=== PATIENT | male | born 1960 | race Caucasian/White ===

== ENCOUNTER 2020-11-22 18:58 | Emergency (ER) | payer MEDICARE, MEDICAID, SELFPAY ==
[2020-11-22 19:19] VITALS: BP 195/95; PULSE 78; RESP 18; TEMP 37.1; O2SAT 99; BMI 29.0
--- NOTE | 2020-11-22 19:43 | ECG_ITS ---
Test Reason : HTN Blood Pressure : / mmHG Vent. Rate : 057 BPM Atrial Rate : 057 BPM P-R Int : 146 ms QRS Dur : 096 ms QT Int : 488 ms P-R-T Axes : 055 004 030 degrees QTc Int : 474 ms Sinus bradycardia Cannot rule out Inferior infarct , age undetermined Abnormal ECG No previous ECGs available Referred By: Norma Rothman Electronically Signed By:DAY COREA
--- NOTE | 2020-11-22 19:44 | ED_ITS ---
HPI - General Adult General Chief complaint: General Medical Stated complaint: High blood pressure Time Seen by Provider: 11/22/20 19:43 Source: patient and family Mode of arrival: ambulatory Limitations: no limitations History of Present Illness MD complaint: HTN Onset (ago): week(s) (1) Location: head Radiation: non-radiation Severity: mild Quality: aching Pain Consistency: now resolved Relieving factors: none Exacerbating factors: other (has not been on enalapril 10mg for 1 week forgot medication in [place]) Associated symptoms: denies other symptoms Treatments prior to arrival: none Related Data Previous Rx's Medication Instructions Recorded enalapril maleate 10 mg tablet 10 mg PO DAILY #30 tab 11/22/20 Allergies Allergy/AdvReac Type Severity Reaction Status Date / Time seafood AdvReac Anaphylaxis Verified 11/22/20 19:25 Review of Systems Review of Systems: Constitutional : No Weight loss, No Fever, No Chills, No Fatigue, No Malaise ENT/Mouth : No sore throat, No Rhinorrhea Eyes: No Eye Pain, No Swelling, No Redness Cardiovascular : No Chest Pain, No SOB, No Dyspnea on Exertion, No Orthopnea, No Edema, No Palpitations Respiratory : No Cough, No Sputum, No Wheezing Gastrointestinal : No Nausea, No Vomiting, No Diarrhea, No Constipation, No abdominal Pain, No Hematochezia, No Melena Genitourinary : No Dysuria, No Urinary Frequency, No Hematuria, Musculoskeletal : No joint pain, No Myalgias, No Joint Swelling Skin : No Skin Lesions, No rash Neuro : No Weakness, No Numbness, No Dizziness, pos Headache Psych : No Anxiety/Panic, No Depression Heme/Lymph: No Bruising, No Bleeding,No Lymphadenopathy Endocrine : No Polyuria, No Polydipsia All other systems reviewed and are negative [facility] Past Medical History Attestation statement: The following information was validated with the patient. Medical History (Updated 11/22/20 @ 21:17 by Norma Rothman DO) Depression Diabetes HTN (hypertension) Surgical History History of hernia surgery Social History Social History Patient Tobacco Use Status: Current everyday Tobacco user Use of substances other than those prescribed or required for medical reasons: No Advance Directives: No Advance Directives Information Provided: No Physical Exam Vital Signs: Vital Signs: Last Vital Signs Temp 98.8 F 11/22/20 19:19 Pulse 62 11/22/20 21:15 Resp 15 11/22/20 21:15 BP 187/84 H 11/22/20 21:15 Pulse Ox 98 11/22/20 21:15 Body Mass Index 29.0 Appearance: Alert. Oriented X3. No acute distress. Eyes: Pupils equal, round and reactive to light. ENT: Pharynx normal. Neck: Normal inspection. Neck supple. CVS: Normal heart rate and rhythm. Pulses normal. Respiratory: No respiratory distress. Breath sounds normal. Abdomen: Soft and nontender. Skin: Skin warm and dry. Normal skin color. Normal skin turgor. Extremities: No lower extremity edema. No calf ttp Neuro: Oriented X 3. No motor deficit. No sensory deficit. Course Course Course Narrative: BP improved stable for DC labs likely related to his chronic ETOH use given panyctopenia hx of ETOH abuse and fatty liver I do not suspect that these liver and lab findings are new he will need to follow up as outpatient discussed no ETOH or tylenol Medical Decision Making MDM Narrative Medical decision making narrative: 60 yo male with hx of recovery ETOH, HTN forgot to bring his 10mg enalapril from [place], DM - comes in with elevated BPs at home intermittent headaches - symptom from now, BP is 204 systolic, no signs of tremor or withdrawal is on xanax 2mg at home, will obtain basic labs, if BP corrects will DC home on his medications Lab Data Result diagrams: 11/22/20 20:07 11/22/20 20:07 Labs: Lab Results 11/22/20 11/22/20 Range/Units 20:07 20:07 WBC 3.2 L (4.8-10.8) X10*3/uL RBC 4.13 L (4.60-5.80) X10*6/uL Hgb 13.8 L (14.0-18.0) g/dl Hct 39.6 L (42-52) % MCV 95.9 (80-98) fL MCH 33.4 H (27.0-33.0) pg MCHC 34.8 (31.0-36.0) g/dl RDW 16.0 (11.0-16.0) % Plt Count 70 L (160-400) X10*3/uL MPV 13.1 H (9.4-12.4) fL Immature Gran % (Auto) 0.6 H (0.0-0.4) % Neut % (Auto) 54.6 (45-73) % Lymph % (Auto) 32.4 (20-40) % Haywood % (Auto) 11.5 H (2-11) % Eos % (Auto) 0.3 (0-4) % Baso % (Auto) 0.6 (0-2) % Lymph # (Auto) 1.0 L (1.2-4.9) X10*3/uL Haywood # (Auto) 0.4 (0.1-1.2) X10*3/uL Eos # (Auto) 0.0 (0.0-0.4) X10*3/uL Baso # (Auto) 0.0 (0.0-0.2) X10*3/uL Abs Immat Gran (auto) 0.02 (0.00-0.03) X10*3/uL Absolute Neuts (auto) 1.8 L (2.0-8.3) X10*3/uL Absolute Nucleated RBC 0.000 (0.0-0.012) X10*3/uL Nucleated RBC % (auto) 0.0 (0.0-0.2) /100WBC Sodium 139 (135-145) mmol/L Potassium 4.1 (3.3-5.1) mmol/L Chloride 104 (96-108) mmol/L Carbon Dioxide 24 (22-29) mmol/L Anion Gap 15 (12-20) BUN 17 H (9-16) mg/dL Creatinine 0.80 (0.5-1.4) mg/dL Estim Creat Clear Calc 99.7 Estimated GFR > 60 Random Glucose 142 H (60-115) mg/dL Calcium 9.1 (8.4-10.2) mg/dL Magnesium 1.8 (1.6-2.6) mg/dL Total Bilirubin 4.2 H (0.0-1.0) mg/dL Direct Bilirubin 2.0 H (0.0-0.5) mg/dL AST 189 H (5-37) U/L ALT 153 H (0-40) U/L Alkaline Phosphatase 106 (39-117) U/L Total Protein 7.6 (6.5-8.0) g/dL Albumin 3.5 (3.5-5.0) g/dL ECG Data Attestation: I personally reviewed and interpreted this ECG as follows: Interpretation: Rate: 57 Rhythm: sinus bradycardia Osborne: normal Normal P waves. Normal GREGORY. Normal QRS complex. ST T wave : normal no ZAHIDA qTC: normal prior studies: no acute ischemia The study has been interpreted contemporaneously by me. . Discharge Plan Discharge Clinical Impression: Pancytopenia, Elevated liver function tests HTN (hypertension) Qualifiers: Hypertension type: unspecified Qualified Code(s): I10 - Essential (primary) hypertension Patient Disposition: Home, Self-Care Instructions: Chronic Hypertension (ED) Additional Instructions: return to ED for any worsening symptoms or concerns NO TYLENOL NO ALCOHOL Prescriptions: New enalapril maleate 10 mg tablet 10 mg PO DAILY Qty: 30 RF: 0 Print Language: Yoruba
[2020-11-22 19:58] VITALS: BP 204/92; PULSE 81; RESP 18; O2SAT 97
[2020-11-22 20:11] VITALS: BP 187/94; PULSE 79
[2020-11-22] MEDS: Labetalol HCL 100 MG/20 ML VIAL 10 MG IVPUSH (20:11)
[2020-11-22 20:12] LABS: MANUAL DIFF FLAG NO
[2020-11-22 20:15] LABS: Basophils Percent Auto 0.6 % (0-2); Eosinophils Percent Auto 0.3 % (0-4); Hematocrit 39.6 % (42-52); Hemoglobin 13.8 g/dl (14.0-18.0); Imm Gran Abs Auto 0.02 X10*3/uL (0.00-0.03); Imm Gran Pct Auto 0.6 % (0.0-0.4); Lymphocytes Percent Auto 32.4 % (20-40); Mean Corpuscular HGB Conc 34.8 g/dl (31.0-36.0); Mean Corpuscular Hemoglobin 33.4 pg (27.0-33.0); Mean Corpuscular Volume 95.9 fL (80-98); Mean Platelet Volume 13.1 fL (9.4-12.4); Monocytes Absolute Auto 0.4 X10*3/uL (0.1-1.2); Monocytes Percent Auto 11.5 % (2-11); Neutrophils Absolute Auto 1.8 X10*3/uL (2.0-8.3); Neutrophils Percent Auto 54.6 % (45-73); Platelet Count 70 X10*3/uL (160-400); Red Blood Count 4.13 X10*6/uL (4.60-5.80); White Blood Count 3.2 X10*3/uL (4.8-10.8)
[2020-11-22 20:44] LABS: Alanine Aminotransferase 153 U/L (0-40); Albumin Level 3.5 g/dL (3.5-5.0); Alkaline Phosphatase 106 U/L (39-117); Anion Gap 15 (12-20); Aspartate Amino Transferase 189 U/L (5-37); Bilirubin Total 4.2 mg/dL (0.0-1.0); Blood Urea Nitrogen 17 mg/dL (9-16); Calcium 9.1 mg/dL (8.4-10.2); Carbon Dioxide 24 mmol/L (22-29); Chloride 104 mmol/L (96-108); Creatinine Clr Calc Pharmacy 99.7; Estimated Glomerular Filt Rate > 60; Glucose Random 142 mg/dL (60-115); Magnesium 1.8 mg/dL (1.6-2.6); Potassium 4.1 mmol/L (3.3-5.1); Sodium 139 mmol/L (135-145); Total Protein 7.6 g/dL (6.5-8.0)
[2020-11-22 21:15] VITALS: BP 187/84; PULSE 62; RESP 15; O2SAT 98
[2020-11-22 22:00] VITALS: BP 178/88; PULSE 67; RESP 16; TEMP 36.7; O2SAT 99
[2020-11-22 22:03] VITALS: BP 178/88; PULSE 67
[2020-11-22] MEDS: Enalapril Maleate 10 MG TABLET PO (22:03)
== END 2020-11-22 22:20 | disposition home or self-care (01) ==
PROVIDERS: Emergency Provider Emergency Medicine
DX: D61.818 Other pancytopenia (principal); R79.89 Other specified abnormal findings of blood chemistry; I10 Essential (primary) hypertension; F17.200 Nicotine dependence, unspecified, uncomplicated; Z71.6 Tobacco abuse counseling; Z79.899 Other long term (current) drug therapy
CPT/HCPCS: 36415; 80048; 80076; 83735; 85025; 93005; 96374; 99284

== ENCOUNTER 2021-02-25 12:44 | Emergency (ER) | payer OTHER, MEDICAID, SELFPAY ==
[2021-02-25 13:51] VITALS: BP 169/93; PULSE 93; RESP 18; TEMP 36.6; O2SAT 96; BMI 29.7
--- NOTE | 2021-02-25 16:04 | ED.GENADULT ---
HPI - General Adult General Chief complaint: General Medical Stated complaint: MEDICATION REFILL Time Seen by Provider: 02/25/21 16:02 Source: patient Mode of arrival: ambulatory Limitations: no limitations History of Present Illness HPI narrative: This is a 60-year-old male presenting to the emergency department because he ran out of Clue Appx 4 days ago. Patient states that he came from [place], he has been taking this medication for 20 years he currently has a primary care provider who referred him to Psychiatry to handle with his psych meds. He states that the semi does not have a psychiatrist. He was taking 2 mg p.o. 3 times a day. He reports no pain at this time. Denies SI/HI. Denies vision changes, headaches, dizziness, chest pain, shortness of breath, nausea, vomiting, abdominal pain. Relieving factors: none Exacerbating factors: none Associated symptoms: denies other symptoms Treatments prior to arrival: none Related Data Previous Rx's Medication Instructions Recorded enalapril maleate 10 mg tablet 10 mg PO DAILY #30 tab 11/22/20 alprazolam 2 mg tablet 2 mg PO TID PRN 5 Days #15 tab 02/25/21 Allergies Allergy/AdvReac Type Severity Reaction Status Date / Time seafood AdvReac Anaphylaxis Verified 02/25/21 13:51 Review of Systems Review of Systems: Constitutional : No Weight loss, No Fever, No Chills, No Fatigue, No Malaise Cardiovascular : No Chest Pain, No SOB, No Dyspnea on Exertion, No Orthopnea, No Edema, No Palpitations Respiratory : No Cough, No Sputum, No Wheezing Gastrointestinal : No Nausea, No Vomiting, No Diarrhea, No Constipation, No abdominal Pain, No Hematochezia, No Melena Genitourinary : No Dysuria, No Urinary Frequency, No Hematuria, Musculoskeletal : No joint pain, No Myalgias, No Joint Swelling Skin : No Skin Lesions, No rash Neuro : No Weakness, No Numbness, No Dizziness, No Headache All other systems reviewed and are negative [facility] Past Medical History Attestation statement: The following information was validated with the patient. Source: old records reviewed and nursing notes reviewed Medical History Depression Diabetes HTN (hypertension) Surgical History History of hernia surgery Social History Social History Patient Tobacco Use Status: Current everyday Tobacco user Advance Directives: No Advance Directives Information Provided: No Physical Exam Vital Signs: Vital Signs: Last Vital Signs Temp 97.8 F 02/25/21 13:51 Pulse 93 02/25/21 13:51 Resp 18 02/25/21 13:51 BP 169/93 H 02/25/21 13:51 Pulse Ox 96 02/25/21 13:51 Body Mass Index 29.7 Appearance: Alert.? Oriented X3.? No acute distress.? Head: Normocephalic, atraumatic, no step-offs or deformities Eyes: Pupils equal, round and reactive to light.? ENT: Pharynx normal.? Neck: Normal inspection.? Neck supple.? CVS: Normal heart rate and rhythm.? Pulses normal.? Respiratory: No respiratory distress.? Breath sounds normal.? Abdomen: Soft and nontender.? Skin: Skin warm and dry.? Normal skin color.? Normal skin turgor.? Extremities: No lower extremity edema.? No calf ttp. 5/5 strength to bilateral upper and lower extremities Back: No midline tenderness, no C-spine tenderness, full range of motion, no CVA tenderness bilaterally Neuro: Oriented X 3.? No motor deficit.? No sensory deficit. Medical Decision Making MDM Narrative Medical decision making narrative: [id number] 60 year old male presents to the emergency department for a medication refill, patient recently came back from [place] he has been on Xanax for 20 years he takes 2 mg p.o. t.i.d. daily for depression. He states he ran out 4 days ago. He reached out to his primary care provider who states that he needs to find a psychiatrist. I checked his [place] which shows that he has not picked up any medications. For this reason at this time I will refill the patient's prescription for 5 days. I also provided with a list of psychiatrists in the area which he can recheck out too to make an appointment. To note, I personally visualized the patient's pill bottle that states the dose, frequency and route of medication. Patient's name matches his identity. Upon physical examination patient appears well he is in no distress. S1-S2 appreciated free of murmurs. Lungs are clear to auscultation. At abdomen soft nontender nondistended. No focal neuro deficits. Pupils equal round and reactive to light bilaterally. Normal strength upper and lower extremities. Plan at this time is to refill the patient's prescription common give him a list of psychiatrists in the area which he can reach out to you to make an appointment so he can have follow-up. I attest that I have reviewed patients [place], and at the time prescribing the patient a controlled substance is appropriate based off of patients diagnosis and treatment plan. Critical Care Time Critical Care Time Critical Care Time: No Discharge Plan Discharge Clinical Impression: Encounter for medication refill Patient Disposition: Home, Self-Care Additional Instructions: Take your medications as prescribed. Follow-up with your primary care provider this week. Return to the emergency department with new or worsening symptoms. In case of emergency call 911 I have given you a list of psychiatrists in the area you can follow-up with. I attest that I have reviewed patients [place], and at the time prescribing the patient a controlled substance is appropriate based off of patients diagnosis and treatment plan. Prescriptions: New alprazolam 2 mg tablet 2 mg PO TID PRN (Reason: anxiety) 5 Days Qty: 15 RF: 0 No Action enalapril maleate 10 mg tablet 10 mg PO DAILY Qty: 30 RF: 0 Referrals: Physician,Unknown J [Primary Care Provider] - 2 days Print Language: Slovak
[2021-02-25] MEDS: ALPRAZolam 0.5 MG TABLET 2 MG PO (16:29)
[2021-02-25 16:38] VITALS: PULSE 100; RESP 18; O2SAT 97
== END 2021-02-25 16:38 | disposition home or self-care (01) ==
PROVIDERS: Emergency Provider Emergency Medicine Emergency Medical Services
DX: Z76.0 Encounter for issue of repeat prescription (principal); F32.A Depression, unspecified
CPT/HCPCS: 99283

== ENCOUNTER 2021-03-10 14:47 | Emergency (ER) | payer OTHER, MEDICAID, SELFPAY ==
[2021-03-10 14:50] VITALS: BP 181/95; PULSE 91; RESP 18; TEMP 36.6; O2SAT 97; BMI 29.9
--- NOTE | 2021-03-10 15:36 | ED_ITS ---
HPI - Recheck/Abnormal Lab/Rx General Chief Complaint: General Medical Stated Complaint: MEDICATION REFILL Time Seen by Provider: 03/10/21 15:29 Source: patient Mode of arrival: ambulatory Limitations: language barrier (Amharic-speaking) History of Present Illness HPI narrative: 60-year-old male presenting to the ED because he ran out of his Xanax for the past 2 days. Reports that he came from [place] and he was taking this medication for 20 years and he has a primary care provider who referred him to Psychiatry to handle his psychiatric medications although he has not been able to get into a psychiatrist. He reports that he takes 2 mg p.o. 3 times a day. He denies any pain at this time. He denies any SI/HI/auditory visual hallucinations thoughts of self-injury or any other symptoms complaints or concerns at this time. He was seen here on 02/25/2021 for same complaint and had a 5 day supply. MD complaint: medication refill request Symptoms since prior visit: no new symptoms Context: ran out of medication Associated symptoms: none Related Data Previous Rx's Medication Instructions Recorded enalapril maleate 10 mg tablet 10 mg PO DAILY #30 tab 11/22/20 alprazolam 2 mg tablet 2 mg PO TID PRN 5 Days #15 tab 02/25/21 alprazolam 2 mg tablet (Xanax) 2 mg PO TID PRN #30 tab 03/10/21 Allergies Allergy/AdvReac Type Severity Reaction Status Date / Time seafood AdvReac Anaphylaxis Verified 02/25/21 13:51 Review of Systems Review of Systems: Constitutional : No Fever, No Chills ENT/Mouth : No Ear Pain, No Nasal Congestion, No sore throat Eyes: No Eye Pain, No Swelling, No Redness Cardiovascular : No Chest Pain, No SOB Respiratory : No Cough, No Sputum, No Dyspnea Gastrointestinal : No ingestions, No Nausea, No Vomiting, No Diarrhea, No Hematochezia, No Melena Genitourinary : No Dysuria, No Urinary Frequency, No Hematuria Musculoskeletal : No Myalgias Skin : No Skin Lesions, No rash Neuro : No Weakness, No Numbness, No Paresthesias, No Dizziness, No Headache Psych : No Anxiety, No Depression, No SI/HI, No AVH, No thoughts of self injury Heme/Lymph: No Lymphadenopathy Endocrine : No Polyuria, No Polydipsia Yes all other systems are reviewed and are negative [facility] Past Medical History Attestation statement: The following information was validated with the patient. Medical History Depression Diabetes HTN (hypertension) Surgical History History of hernia surgery Social History Social History Patient Tobacco Use Status: Current everyday Tobacco user Advance Directives: No Advance Directives Information Provided: No Physical Exam Vital Signs: Vital Signs: Last Vital Signs Temp 98 F 03/10/21 14:50 Pulse 91 03/10/21 14:50 Resp 18 03/10/21 14:50 BP 181/95 H 03/10/21 14:50 Pulse Ox 97 03/10/21 14:50 BMI result Body Mass Index 29.9 vital signs have been reviewed as normal and appeared to be correct. Blood pressure normal. Heart rate normal. Respiration rate normal. Temperature normal. Oxygen saturation normal. Appearance: Alert. Oriented X3. No acute distress. Head: Normal external exam. Normocephalic. Atraumatic. Eyes: PERRLA. EOMI. Conjunctiva and sclera normal. Eyelids normal. ENT: EAC normal. TM's Normal. Pharynx normal. Uvula midline. Moist mucous membranes. No trismus noted. No drooling noted. No muffled voice noted. Neck: Normal inspection. Neck supple. FROM. No adenopathy. Thyroid Normal. No meningeal signs. No neck mass noted. CVS: Normal heart rate and rhythm. Heart sound normal. No murmurs noted. Pulses normal throughout. Respiratory: No respiratory distress. Painless inspiration. Breath sounds normal. No wheezes/rales/rhonchi noted. Chest nontender. No accessory muscle usage noted or decreased air movement noted. Back: Full range of motion noted. Skin: Skin warm and dry. Normal skin color. Normal skin turgor. No rashes/lesions/lacerations noted. Extremities: Extremities exhibit normal range of motion. Extremities nontender. Neuro: Oriented X 3. No motor deficit. No sensory deficit. Reflexes normal. Psych: Appearance grossly normal, well-kept, mental status normal, speech and movement normal, speech clear, normal affect. Is cooperative. Normal thought process. Normal thought content. Normal good insight. Judgment good. Course Course Course Narrative: 60-year-old male presenting to the ED because he ran out of his Xanax for the past 2 days. Reports that he came from [place] and he was taking this medication for 20 years and he has a primary care provider who referred him to Psychiatry to handle his psychiatric medications although he has not been able to get into a psychiatrist. He reports that he takes 2 mg p.o. 3 times a day. He denies any pain at this time. He denies any SI/HI/auditory visual hallucinations thoughts of self-injury or any other symptoms complaints or concerns at this time. He was seen here on 02/25/2021 for same complaint and had a 5 day supply. I checked mast pad and I do not see that he filled any prescriptions recently. He reports that his doctor is currently trying to fill his prescriptions until they can refer him to a psychiatrist but the computers have not been working for the past 2 days. Therefore at this time will DC home with instructions to call his PCP again tomorrow and the list of referrals for the psychiatrist at they gave him and will give him a short course of refills for the Xanax but I explained to him that he cannot continue coming here for medication refills that has to be his PCP or his psychiatrist and he understands and agrees with this. MDM - Recheck/Abnormal Lab/Rx Medical Records Attestation: I reviewed the patient's medical records. Discharge Plan Discharge Clinical Impression: Medication refill Patient Disposition: Home, Self-Care Instructions: Medicine Refill (ED) Prescriptions: New alprazolam [Xanax] 2 mg tablet 2 mg PO TID PRN (Reason: anxiety) Qty: 30 RF: 0 No Action enalapril maleate 10 mg tablet 10 mg PO DAILY Qty: 30 RF: 0 alprazolam 2 mg tablet 2 mg PO TID PRN (Reason: anxiety) 5 Days Qty: 15 RF: 0 Referrals: Physician,Unknown J [Primary Care Provider] - 2 days (your pcp) Print Language: Amharic
[2021-03-10] MEDS: ALPRAZolam 0.5 MG TABLET 2 MG PO (15:52)
== END 2021-03-10 15:58 | disposition home or self-care (01) ==
PROVIDERS: Emergency Provider Emergency Medicine
DX: Z76.0 Encounter for issue of repeat prescription (principal); F17.200 Nicotine dependence, unspecified, uncomplicated; Z71.6 Tobacco abuse counseling; I10 Essential (primary) hypertension; Z79.899 Other long term (current) drug therapy
CPT/HCPCS: 99283

== ENCOUNTER 2021-05-03 09:47 | Emergency (ER) | payer OTHER, SELFPAY ==
[2021-05-03 10:09] VITALS: BP 183/90; PULSE 82; RESP 20; TEMP 37.4; O2SAT 97; BMI 29.0
--- NOTE | 2021-05-03 11:14 | ED.MALEGU ---
HPI - Male Genitourinary General Chief complaint: Urogenital-Male Stated complaint: Pain when urinating Time Seen by Provider: 05/03/21 11:09 Source: patient Mode of arrival: ambulatory Limitations: no limitations History of Present Illness HPI Narrative: Patient comes to the emergency room complaining of difficulty urinating for 3 days. Patient states that his urine looks orange/ dark brown. Patient denies any dysuria. Patient states that yesterday he was able to urinate normal for the last time. Related Data Previous Rx's Medication Instructions Recorded enalapril maleate 10 mg tablet 10 mg PO DAILY #30 tab 11/22/20 alprazolam 2 mg tablet 2 mg PO TID PRN 5 Days #15 tab 02/25/21 alprazolam 2 mg tablet (Xanax) 2 mg PO TID PRN #30 tab 03/10/21 levofloxacin 500 mg tablet 500 mg PO DAILY #9 tab 05/03/21 Allergies Allergy/AdvReac Type Severity Reaction Status Date / Time seafood AdvReac Anaphylaxis Verified 02/25/21 13:51 Review of Systems Review of Systems: Constitutional : No Weight loss, No Fever, No Chills, No Night Sweats, No Fatigue, No Malaise ENT/Mouth : No Hearing loss, No Ear Pain, No Nasal Congestion, No Sinus Pain, No Hoarseness, No sore throat, No Rhinorrhea, No Swallowing Difficulty Eyes: No Eye Pain, No Swelling, No Redness, No Foreign Body, No Discharge, No Vision Changes Cardiovascular : No Chest Pain, No SOB, No Dyspnea on Exertion, No Orthopnea, No Edema, No Palpitations Respiratory : No Cough, No Sputum, No Wheezing, No Smoke Exposure, No Dyspnea Gastrointestinal : No Nausea, No Vomiting, No Diarrhea, No Constipation, No abdominal Pain, No Hematochezia, No Melena Genitourinary : no irregular bleeding, No Dysuria, No Urinary Frequency, Complaining of dark urine, urgency, no flank pain, complaining of difficulty passing urine Musculoskeletal : No joint pain, No Myalgias, No Joint Swelling Skin : No Skin Lesions, No rash Neuro : No Weakness, No Numbness, No Paresthesias, No Loss of Consciousness, No Dizziness, No Headache Psych : No Anxiety/Panic, No Depression, No SI/HI/AH/VH, No Social Issues, Heme/Lymph: No Bruising, No Bleeding,No Lymphadenopathy Endocrine : No Polyuria, No Polydipsia, No Temperature Intolerance [facility] Past Medical History Medical History Depression Diabetes HTN (hypertension) Surgical History History of hernia surgery Social History Social History Patient Tobacco Use Status: Current everyday Tobacco user Advance Directives: No Advance Directives Information Provided: No Physical Exam Vital Signs: Vital Signs: Last Vital Signs Temp 98.6 F 05/03/21 12:12 Pulse 82 05/03/21 12:12 Resp 14 05/03/21 12:12 BP 158/83 H 05/03/21 12:12 Pulse Ox 97 05/03/21 12:12 BMI result Body Mass Index 29.0 Const: Other: Appearance: Alert. Oriented X3. No acute distress. Eyes: Pupils equal, round and reactive to light. ENT: Pharynx normal. Neck: Normal inspection. Neck supple. No lymph nodes noted. No crepitus CVS: Normal heart rate and rhythm. Pulses normal. Normal S1 and S2 Respiratory: No respiratory distress. Breath sounds normal. No Wheezing. No rales Abdomen: Soft and nontender. bladder does not seem distended on palpation.No rigidity. No distention. Skin: Skin warm and dry. Normal skin color. Normal skin turgor. Extremities: No lower extremity edema. No Lacerations. No Rash Neuro: Oriented X 3. No motor deficit. No sensory deficit. Moving all extermities. No slurred speech. Course Course Course Narrative: patient has no abdominal pain, no flank pain. White blood cell count within normal limits, patient not tachycardic, does not have fever, blood pressure within normal limits. Sepsis is not suspected. no flank pain/ no CVA tenderness, pyelonephritis not suspected. I discussed with the patient that he has a UTI. Patient states that he is allergic to penicillin, does not know what the reaction is. Patient given 1 dose of p.o. Levaquin. Also, patient's LFTs are elevated chronically. Patient states that he used to drink a lot of alcohol chronically. Patient does not have a GI doctor. A referral was given to the patient. MDM - Male Genitourinary Lab Data Result diagrams: 05/03/21 13:56 05/03/21 13:56 Labs: Lab Results 05/03/21 05/03/21 05/03/21 Range/Units 12:10 13:56 13:56 WBC 7.4 (4.8-10.8) X10*3/uL RBC 3.97 L (4.60-5.80) X10*6/uL Hgb 13.0 L (14.0-18.0) g/dl Hct 37.1 L (42.0-52.0) % MCV 93.5 (80.0-98.0) fL MCH 32.7 (27.0-33.0) pg MCHC 35.0 (31.0-36.0) g/dl RDW 16.9 H (11.0-16.0) % Plt Count 58 L (160-400) X10*3/uL MPV 12.9 H (9.4-12.4) fL Immature Gran % (Auto) 0.4 (0.0-0.4) % Neut % (Auto) 65.6 (45-73) % Lymph % (Auto) 25.7 (20-40) % [place] % (Auto) 7.6 (2-11) % Eos % (Auto) 0.3 (0-4) % Baso % (Auto) 0.4 (0-2) % Lymph # (Auto) 1.9 (1.2-4.9) X10*3/uL [place] # (Auto) 0.6 (0.1-1.2) X10*3/uL Eos # (Auto) 0.0 (0.0-0.4) X10*3/uL Baso # (Auto) 0.0 (0.0-0.2) X10*3/uL Abs Immat Gran (auto) 0.03 (0.00-0.03) X10*3/uL Absolute Neuts (auto) 4.8 (2.0-8.3) x10*3/uL Absolute Nucleated RBC 0.000 (0.0-0.012) X10*3/uL Nucleated RBC % (auto) 0.0 (0.0-0.2) /100WBC Sodium 137 (135-145) mmol/L Potassium 4.0 (3.3-5.1) mmol/L Chloride 104 (96-108) mmol/L Carbon Dioxide 28 (22-29) mmol/L Anion Gap 9 L (12-20) BUN 15 (9-16) mg/dL Creatinine 0.79 (0.5-1.4) mg/dL Estim Creat Clear Calc 97.7 Estimated GFR > 60 Random Glucose 139 H (60-115) mg/dL Calcium 8.5 D (8.4-10.2) mg/dL Total Bilirubin 6.1 H (0.0-1.0) mg/dL Direct Bilirubin 2.3 H (0.0-0.5) mg/dL AST 129 H (5-37) U/L ALT 100 H (0-40) U/L Alkaline Phosphatase 95 (39-117) U/L Total Protein 6.7 (6.5-8.0) g/dL Albumin 2.9 L (3.5-5.0) g/dL Urine Color ORANGE A Urine Appearance CLOUDY Urine pH 5.5 (5.0-8.0) Ur Specific [place] 1.020 (1.005-1.025) Urine Protein 2+ H (NEG-TRACE) MG/DL Urine Glucose (UA) NEG (NEG) MG/DL Urine Ketones 5 (NEG) MG/DL Urine Blood 3+ H (NEG) Urine Nitrite POS H (NEG) Ur Leukocyte Esterase 2+ H (NEG) Urine RBC 15-29 H (0) /HPF Urine WBC 30-49 H (0-4) /HPF Ur Squamous Epith Cells NONE /LPF Urine Bacteria 3+ /LPF Discharge Plan Discharge Clinical Impression: Urinary tract infection, Elevated LFTs Patient Disposition: Home, Self-Care Instructions: Urinary Tract Infection in Men (ED) Additional Instructions: Please follow-up with your primary care physician and Gastroenterology tomorrow. If you have any worsening or new symptoms, please return to the emergency room or call 911 Prescriptions: New levofloxacin 500 mg tablet 500 mg PO DAILY Qty: 9 RF: 0 No Action enalapril maleate 10 mg tablet 10 mg PO DAILY Qty: 30 RF: 0 alprazolam 2 mg tablet 2 mg PO TID PRN (Reason: anxiety) 5 Days Qty: 15 RF: 0 alprazolam [Xanax] 2 mg tablet 2 mg PO TID PRN (Reason: anxiety) Qty: 30 RF: 0 Referrals: Grady Robles [Physician] - 2 days
[2021-05-03 12:12] VITALS: BP 158/83; PULSE 82; RESP 14; TEMP 37; O2SAT 97
[2021-05-03 12:45] LABS: Appearance Urine CLOUDY; Color Urine ORANGE; Glucose Urine UA NEG (NEG); Leukocyte Esterase Urine 2+ (NEG); PH 5.5 (5.0-8.0); UACC Culture Trigger YES; Urine Blood 3+ (NEG); Urine Ketones 5 MG/DL (NEG); Urine Protein 2+ MG/DL (NEG-TRACE)
[2021-05-03 13:04] LABS: Nitrite Urine POS (NEG)
[2021-05-03 13:42] LABS: WBC Urine 30-49 /HPF (0-4)
[2021-05-03 13:43] LABS: Bacteria Urine 3+ /LPF
[2021-05-03 14:00] LABS: MANUAL DIFF FLAG NO
[2021-05-03 14:07] LABS: Basophils Percent Auto 0.4 % (0-2); Eosinophils Percent Auto 0.3 % (0-4); Hematocrit 37.1 % (42.0-52.0); Imm Gran Abs Auto 0.03 X10*3/uL (0.00-0.03); Imm Gran Pct Auto 0.4 % (0.0-0.4); Lymphocytes Absolute Auto 1.9 X10*3/uL (1.2-4.9); Lymphocytes Percent Auto 25.7 % (20-40); Mean Corpuscular Hemoglobin 32.7 pg (27.0-33.0); Mean Corpuscular Volume 93.5 fL (80.0-98.0); Mean Platelet Volume 12.9 fL (9.4-12.4); Monocytes Absolute Auto 0.6 X10*3/uL (0.1-1.2); Monocytes Percent Auto 7.6 % (2-11); Neutrophils Absolute Auto 4.8 x10*3/uL (2.0-8.3); Neutrophils Percent Auto 65.6 % (45-73); Platelet Count 58 X10*3/uL (160-400); Red Blood Count 3.97 X10*6/uL (4.60-5.80); Red Cell Distribution Width 16.9 % (11.0-16.0); White Blood Count 7.4 X10*3/uL (4.8-10.8)
--- NOTE | 2021-05-03 14:09 | PC.NURSE ---
pt reports he is having trouble urinating and that his urine looks orange, he last urinated yesterday. pt bladder scanned at 60 ml here in the ed and was able to void in the toilet after scan. pt did not report burning or pain after voiding. labs drawn and urine collected. awaiting results.
[2021-05-03 14:24] LABS: Alanine Aminotransferase 100 U/L (0-40); Albumin Level 2.9 g/dL (3.5-5.0); Alkaline Phosphatase 95 U/L (39-117); Anion Gap 9 (12-20); Aspartate Amino Transferase 129 U/L (5-37); Bilirubin Direct 2.3 mg/dL (0.0-0.5); Bilirubin Total 6.1 mg/dL (0.0-1.0); Blood Urea Nitrogen 15 mg/dL (9-16); Calcium 8.5 mg/dL (8.4-10.2); Carbon Dioxide 28 mmol/L (22-29); Chloride 104 mmol/L (96-108); Creatinine Clr Calc Pharmacy 97.7; Estimated Glomerular Filt Rate > 60; Glucose Random 139 mg/dL (60-115); Sodium 137 mmol/L (135-145); Total Protein 6.7 g/dL (6.5-8.0)
[2021-05-03 14:53] VITALS: BP 146/86; PULSE 83; RESP 14; O2SAT 97
[2021-05-03 15:03] LABS: Glucose, Whole Blood 134 mg/dL (60-115)
[2021-05-03] MEDS: levoFLOXacin 500 MG TABLET PO (15:05)
== END 2021-05-03 15:14 | disposition home or self-care (01) ==
PROVIDERS: Emergency Provider Emergency Medicine
DX: N39.0 Urinary tract infection, site not specified (principal); R79.89 Other specified abnormal findings of blood chemistry; E11.9 Type 2 diabetes mellitus without complications; I10 Essential (primary) hypertension; F17.200 Nicotine dependence, unspecified, uncomplicated
CPT/HCPCS: 36415; 51798; 80048; 80076; 81001; 81003; 82947; 85025; 87086; 87088; 87186; 99283; 99285